=== PATIENT | female | born 1965 | race Caucasian/White ===

== ENCOUNTER 2018-01-04 05:24 | Emergency (ER) | payer OTHER ==
[~2018-01-04] VITALS: Ht 177.8 cm; Wt 95.5 kg
[2018-01-04 05:31] VITALS: TEMP 98.1
[2018-01-04] MEDS ORDERED: NORCO 325 MG-51 TAB PO (06:48)
[2018-01-04] MEDS ORDERED: CLEOCIN HCL300 MG PO (06:48)
[2018-01-04 07:02] VITALS: BP 112/96; PULSE 118
== END 2018-01-04 07:03 | disposition home or self-care (01) ==
LOC: COL.ER 05:24
DX: K61.0 Anal abscess (principal); J45.909 Unspecified asthma, uncomplicated; K21.9 Gastro-esophageal reflux disease without esophagitis; Z90.49 Acquired absence of other specified parts of digestive tract

== ENCOUNTER 2018-12-26 04:10 | Emergency (ER) | payer OTHER ==
[~2018-12-26] VITALS: Ht 177.8 cm; Wt 115.9 kg
[~2018-12-26 04:10] MED LIST: CLEOCIN HCL300 MG PO; NORCO 325 MG-51 TAB PO
[2018-12-26 04:14] VITALS: BP 134/71; TEMP 97.6
[2018-12-26] MEDS ORDERED: BACTRIM DS 8001 TAB PO (04:34)
[2018-12-26 04:48] VITALS: PULSE 96
== END 2018-12-26 04:48 | disposition home or self-care (01) ==
LOC: COL.ER 04:10
DX: L02.31 Cutaneous abscess of buttock (principal); K21.9 Gastro-esophageal reflux disease without esophagitis

== ENCOUNTER 2019-06-23 07:56 | Day surgery (SDC) | payer OTHER ==
[~2019-06-23] VITALS: Ht 177.8 cm; Wt 116.8 kg
[~2019-06-23 07:56] MED LIST changes: +BACTRIM DS 8001 TAB PO
[2019-06-23 08:35] VITALS: BP 134/81; PULSE 84; TEMP 97.9
[2019-06-23] MEDS ORDERED: VENTOLIN0.09 MG IH (09:00)
[2019-06-23] MEDS ORDERED: CLARITIN 1010 MG/TAB PO (09:01)
[2019-06-23] MEDS ORDERED: COLESTID 1GM1 G PO (09:02)
[2019-06-23] MEDS ORDERED: [UNRECOGNIZED DRUG - OTHER] PO (09:04)
[2019-06-23] MEDS ORDERED: IRON TABLETS325 MG PO (09:06)
[2019-06-23] MEDS ORDERED: MOBIC 7.5MG7.5 MG PO (09:07)
[2019-06-23] MEDS ORDERED: PRILOSEC 20MG20 MG PO (09:07)
[2019-06-23] MEDS ORDERED: ZANAFLEX CAPSULE2 MG PO (09:10)
[2019-06-23] MEDS ORDERED: TYLENOL 325MG325 MG PO (09:11)
[2019-06-23] MEDS ORDERED: VITAMIN D3400 I1 PO (09:12)
[2019-06-23] MEDS ORDERED: NORCO 325 MG-51 TAB PO (10:54)
[2019-06-23 10:55] VITALS: BP 98/63; PULSE 83
--- NOTE | 2019-06-23 10:55 | NUR ---
Patient returns to room 4 per cart and is awake and alert. Temp 97.7 and room air sats 97%. IV fluids infusing LW and site is free of redness. Siderails up x2 and call light in reach. 4x4 gauze dressing clean and dry to mohsen area.
[2019-06-23 11:10] VITALS: BP 109/66; PULSE 60
--- NOTE | 2019-06-23 11:10 | NUR ---
Dr. Stanton to talk with the patient. All questions answered.
[2019-06-23 11:25] VITALS: BP 108/69; PULSE 57
--- NOTE | 2019-06-23 11:25 | NUR ---
Room air sats 99%. Denies pain or nausea. Eating muffin and drinking coffee and water.
[2019-06-23 11:40] VITALS: BP 113/69; PULSE 63
--- NOTE | 2019-06-23 11:40 | NUR ---
States that she is beginning to have some incisional pain and soreness.
--- NOTE | 2019-06-23 11:49 | NUR ---
Medicated with [place] 5mg one tab for incisional pain.
--- NOTE | 2019-06-23 12:00 | NUR ---
Assisted up to the bathroom and gait steady. Voids and returns to room. States that she is having some bleeding from cyst incision and mesh panties and peripad in place.
--- NOTE | 2019-06-23 12:22 | NUR ---
Given dismissal instructions and voices understanding of dismissal instructions. Given sitz bath and shown proper use. Instructed to use after bowel movements and as needed for comfort. Provided script for [place] and states that she is no longer having discomfort. Instructed to take pain medication every 4 hours as needed.
--- NOTE | 2019-06-23 12:25 | NUR ---
Patient dismissed to home per private vehicle driven by friend with dismissal instructions in hand. Taken to the front door per wheelchair and assisted into car by Shania ALVARENGA.
== END 2019-06-23 12:25 | disposition home or self-care (01) ==
LOC: SDCO 07:56
DX: D28.0 Benign neoplasm of vulva (principal); K60.3 Anal fistula; J45.909 Unspecified asthma, uncomplicated; K21.9 Gastro-esophageal reflux disease without esophagitis; G89.29 Other chronic pain; Z90.49 Acquired absence of other specified parts of digestive tract; Z91.048 Other nonmedicinal substance allergy status; Z91.018 Allergy to other foods
CPT/HCPCS: J0690; J2704; J3010; J7120

== ENCOUNTER → 2019-08-09 | Outpatient (CLI) | payer OTHER ==
[~2019-08-09] MED LIST changes: +CLARITIN 1010 MG/TAB PO; +COLESTID 1GM1 G PO; +IRON TABLETS325 MG PO; +MOBIC 7.5MG7.5 MG PO; +PRILOSEC 20MG20 MG PO; +TYLENOL 325MG325 MG PO; +VENTOLIN0.09 MG IH; +VITAMIN D3400 I1 PO; +ZANAFLEX CAPSULE2 MG PO; +[UNRECOGNIZED DRUG - OTHER] PO
== END ==
LOC: COL.RAD 14:34
DX: M47.22 Other spondylosis with radiculopathy, cervical region (principal); M48.02 Spinal stenosis, cervical region

== ENCOUNTER → 2019-11-29 | Outpatient (CLI) | payer OTHER | LOC: COL.LAB 13:50 | DX: K21.9 Gastro-esophageal reflux disease without esophagitis (principal); M19.90 Unspecified osteoarthritis, unspecified site ==

== ENCOUNTER → 2021-08-07 | Outpatient (CLI) | payer OTHER | LOC: COL.RAD 01-21 11:00 → COL.LAB 08:16 → COL.RAD 08:16 → COL.LAB 09:00 | DX: Z20.822 Contact with and (suspected) exposure to COVID-19 (principal) ==

== ENCOUNTER 2022-01-26 06:57 | Day surgery (SDC) | payer OTHER ==
[~2022-01-26] VITALS: Ht 175.3 cm; Wt 121.5 kg
[2022-01-26] MEDS ORDERED: VITRON-C PO (07:20)
[2022-01-26] MEDS ORDERED: [UNRECOGNIZED DRUG - CODE] PO (07:21)
[2022-01-26 07:49] VITALS: BP 121/83; PULSE 82; TEMP 97.9
--- NOTE | 2022-01-26 08:10 | NUR ---
IV started in right wrist on second attempt with 18G. Pt states she has an allergy to adhesive, however the pt stated that it is OK to use tape to support IV site: "please use tape it so it stays put". RN asked about tegaderm before applying it to site and the pt stated "that is fine. It's for such a short period of time, I don't think it will cause a major reaction. It is fine to use it". Pt states EKG pads cause hives and lucia, RN notified OR, RN.
[2022-01-26 10:35] VITALS: BP 120/57; PULSE 66; TEMP 96.9
--- NOTE | 2022-01-26 10:35 | NUR ---
Pt arrived from PACU alert and oriented. Vitals obtained. Per report: pt has a mohsen pad on with minimal pink drainage. Pt states discomfort but no pain or nausea. Pt requested hot coffe, with ice water and a warm muffin. Warm blankets provided. Side rails x1. Call dueñas is within reach on side table if needed. Will continue to monitor per intervals.
--- NOTE | 2022-01-26 10:50 | NUR ---
Pt is eating her muffin and continues to drink her coffee. Denies nause. No vomiting. Vitals obtained. Pt continues to deny pain. Call dueñas remains within reach.
[2022-01-26 11:05] VITALS: BP 119/65; PULSE 79
--- NOTE | 2022-01-26 11:05 | NUR ---
Vitals obtained. Pt expressed desire to be discharged. Call dueñas remains within reach.
[2022-01-26 11:20] VITALS: BP 122/75; PULSE 79
--- NOTE | 2022-01-26 11:30 | NUR ---
DC instructions and educational material reviewed with the pt, who verbalized understanding and signed the related paperwork. Pt denied having questions or concerns. Pt denied needing assistance changing into personal clothes. IV discontinued. Catheter tip intact. Pressure bandage applied. No redness or swelling noted. Call dueñas remains within reach.
--- NOTE | 2022-01-26 11:40 | NUR ---
Pt dismissed to the pt entrence via wheelchair by shaye ALVARENGA. Pt has her personal belongings and DC packet in hand, and was transferred into the care of her friend Shane who is present to drive.
== END 2022-01-26 11:40 | disposition home or self-care (01) ==
LOC: SDCO 06:57
DX: N95.0 Postmenopausal bleeding (principal); N84.0 Polyp of corpus uteri; J45.909 Unspecified asthma, uncomplicated; E66.9 Obesity, unspecified; Z68.41 Body mass index [BMI] 40.0-44.9, adult; K21.9 Gastro-esophageal reflux disease without esophagitis; Z80.49 Family history of malignant neoplasm of other genital organs; Z80.8 Family history of malignant neoplasm of other organs or systems
CPT/HCPCS: J0330; J1100; J1885; J2250; J2405; J2704; J3010; J7120